=== PATIENT | female | born 1945 | race Two or more races ===

== ENCOUNTER 2020-11-06 21:04 | Emergency (ER) | payer MEDICARE, MEDICAID ==
[~2020-11-06] VITALS: Ht 172.7 cm; Wt 113.0 kg
[~2020-11-06 21:04] MED LIST: ATEN-42 PO; CLAR10 PO; CYCL30DR EACHEYE; ESOM40CA PO; EYE15DRO EACHEYE; FERR-43 PO; FURO-151 PO; IBUP-2030 PO; MULT-1146 PO; NIFE30TA8 PO; OXYC-582 PO; POTA10CA42 PO
[2020-11-06] MEDS ORDERED: FAMOTIDINE 20MG/2ML VIAL IV ONE (23:30)
[2020-11-06] MEDS ORDERED: MORPHINE SULFATE 4 MG/ML CPJ (NOT FOR IM USE) IV STA (23:48)
[2020-11-07 00:15] LABS: CHLORIDE 106 mEq/L (98-107)
[2020-11-07 00:26] LABS: BASOPHILS % 0.7 % (0.0-2.0); EOSINOPHILS % 6.8 % (0.0-5.0); HEMOGLOBIN. 14.7 g/dL (12.0-16.0); LYMPHOCYTES % 31.7 % (20.0-50.0); MEAN CORPUSCULAR VOLUME 85.7 fL (81.0-99.0); MEAN PLATELET VOLUME 8.1 fl (7.4-10.4); MONOCYTES % 7.1 % (2.0-8.0); NEUTROPHILS % 53.7 % (40.0-76.0); PLATELET 252 x1000/uL (130-400); RED BLOOD CELL COUNT 5.25 mill/uL (4.2-5.4); RED CELL DISTRIBUTION WIDTH 14.4 % (11.6-14.6)
[2020-11-07 01:00] LABS: CLARITY URINE CLEAR (CLEAR); COLOR URINE YELLOW (YELLOW); KETONES URINE NEGATIVE (NEGATIVE); LEUKOCYTE ESTERASE URINE NEGATIVE (NEGATIVE); NITRITE URINE NEGATIVE (NEGATIVE); OCCULT BLOOD URINE NEGATIVE (NEGATIVE); PROTEIN URINE NEGATIVE (NEGATIVE); SPECIFIC GRAVITY URINE 1.013 (1.005-1.030); UROBILINOGEN URINE 0.2 E.U./dL (0.2-1.0)
[2020-11-07 01:03] LABS: PROTHROMBIN TIME 10.8 sec (9.6-11.0)
[2020-11-07] MEDS ORDERED: IOHEXOL-300 100 ML BOTTLE ONE (01:44)
[2020-11-07] MEDS ORDERED: ACETAMINOPHEN 500MG TABLET PO NR (02:15)
[2020-11-07] MEDS ORDERED: MORPHINE SULFATE 4 MG/ML CPJ (NOT FOR IM USE) IV STA (04:29)
[2020-11-07 04:58] VITALS: BP 166/84
[2020-11-07] MEDS ORDERED: GABA-532 MT (04:58)
== END 2020-11-07 05:05 | disposition home or self-care (01) ==
LOC: ER 21:04
DX: K44.9 Diaphragmatic hernia without obstruction or gangrene (principal); R10.9 Unspecified abdominal pain; N20.0 Calculus of kidney; Q89.1 Congenital malformations of adrenal gland; H26.9 Unspecified cataract; I10 Essential (primary) hypertension; Z88.3 Allergy status to other anti-infective agents; Z96.649 Presence of unspecified artificial hip joint; Z96.659 Presence of unspecified artificial knee joint; Z98.890 Other specified postprocedural states
CPT/HCPCS: 36415; 71045; 74177; 80053; 81003; 83690; 84484; 85025; 85610; 93005; 96374; 96375; 96376; 99285; J2270; J3490; Q9967

== ENCOUNTER → 2020-11-19 | Outpatient (CLI) | payer MEDICARE, MEDICAID ==
[~2020-11-19] MED LIST changes: +BARIUM SULFATE 176 GM SUSP.RECON ONE; +EZ-HD SUSPENSION(BARIUM SULFATE 340GM) PO ONE; +GABA-532 MT
== END | disposition home or self-care (01) ==
LOC: RAD 09:06
PROVIDERS: ATTEND Internal Medicine
DX: K44.9 Diaphragmatic hernia without obstruction or gangrene (principal); M47.816 Spondylosis without myelopathy or radiculopathy, lumbar region
CPT/HCPCS: 74246

== ENCOUNTER 2021-11-23 09:55 | Emergency (ER) | payer MEDICARE, MEDICAID ==
[~2021-11-23] VITALS: Ht 175.3 cm; Wt 106.0 kg
[~2021-11-23 09:55] MED LIST changes: -BARIUM SULFATE 176 GM SUSP.RECON ONE; -EZ-HD SUSPENSION(BARIUM SULFATE 340GM) PO ONE
[2021-11-23 10:35] VITALS: BP 219/119
[2021-11-23] MEDS ORDERED: CLONIDINE 0.2MG TABLET PO ONE (12:30)
[2021-11-23 15:17] LABS: BASOPHILS % 0.5 % (0.0-2.0); HEMOGLOBIN. 13.2 g/dL (12.0-16.0); MEAN CORPUSCULAR HEMOGLOBIN 27.8 pg (28.0-32.0); MEAN CORPUSCULAR VOLUME 86.5 fL (81.0-99.0); MEAN PLATELET VOLUME 8.5 fl (7.4-10.4); NEUTROPHILS % 62.5 % (40.0-76.0); PLATELET 203 x1000/uL (130-400); RED BLOOD CELL COUNT 4.74 mill/uL (4.2-5.4); RED CELL DISTRIBUTION WIDTH 14.6 % (11.6-14.6)
[2021-11-23 15:27] LABS: CHLORIDE 106 mEq/L (98-107)
[2021-11-23 15:43] LABS: ETHANOL BLOOD < 10 mg/dL
[2021-11-23] MEDS ORDERED: CLONIDINE 0.2MG TABLET PO NR (16:40)
== END 2021-11-23 18:38 | disposition left against medical advice (07) ==
LOC: ER 10:06
DX: M54.2 Cervicalgia (principal); I11.0 Hypertensive heart disease with heart failure; I50.9 Heart failure, unspecified; Z90.49 Acquired absence of other specified parts of digestive tract; Z79.899 Other long term (current) drug therapy
CPT/HCPCS: 36415; 71045; 71046; 80053; 80320; 83880; 84443; 84484; 85025; 93005; 99285; G0480

== ENCOUNTER → 2021-12-12 | Outpatient (CLI) | payer MEDICARE, MEDICAID | END | disposition home or self-care (01) | LOC: CT 14:44 | DX: M51.37 Other intervertebral disc degeneration, lumbosacral region (principal); M47.815 Spondylosis without myelopathy or radiculopathy, thoracolumbar region; M46.06 Spinal enthesopathy, lumbar region; G95.89 Other specified diseases of spinal cord | CPT/HCPCS: 72131 ==

== ENCOUNTER 2022-01-08 16:25 | Emergency (ER) | payer MEDICARE, MEDICAID ==
[~2022-01-08] VITALS: Ht 175.3 cm; Wt 118.0 kg
[2022-01-08 20:07] LABS: BASOPHILS % 0.7 % (0.0-2.0); EOSINOPHILS % 2.9 % (0.0-5.0); HEMATOCRIT. 46.5 % (36.0-48.0); HEMOGLOBIN. 14.9 g/dL (12.0-16.0); LYMPHOCYTES % 27.1 % (20.0-50.0); MEAN CORPUSCULAR HEMOGLOBIN 27.3 pg (28.0-32.0); MEAN CORPUSCULAR VOLUME 85.4 fL (81.0-99.0); MEAN PLATELET VOLUME 8.9 fl (7.4-10.4); MONOCYTES % 7.4 % (2.0-8.0); NEUTROPHILS % 61.9 % (40.0-76.0); PLATELET 286 x1000/uL (130-400); RED BLOOD CELL COUNT 5.45 mill/uL (4.2-5.4); RED CELL DISTRIBUTION WIDTH 15.2 % (11.6-14.6)
[2022-01-08 20:21] LABS: CHLORIDE 105 mEq/L (98-107)
[2022-01-08] MEDS: MORPHINE SULFATE 4 MG/ML CPJ (NOT FOR IM USE) IV STA (20:33)
[2022-01-08] MEDS: ONDANSETRON HCL 4MG/2ML INJ IV STA (20:34)
[2022-01-08 20:57] LABS: CLARITY URINE CLEAR (CLEAR); COLOR URINE YELLOW (YELLOW); KETONES URINE NEGATIVE (NEGATIVE); LEUKOCYTE ESTERASE URINE NEGATIVE (NEGATIVE); NITRITE URINE NEGATIVE (NEGATIVE); OCCULT BLOOD URINE NEGATIVE (NEGATIVE); PROTEIN URINE NEGATIVE (NEGATIVE); SPECIFIC GRAVITY URINE 1.017 (1.005-1.030); UROBILINOGEN URINE 0.2 E.U./dL (0.2-1.0)
[2022-01-08] MEDS ORDERED: HYDR-4001 MT (22:13)
[2022-01-08 23:40] VITALS: BP 159/94
[2022-01-08] MEDS: MORPHINE SULFATE 4 MG/ML CPJ (NOT FOR IM USE) IV ONE (23:40)
== END 2022-01-09 00:15 | disposition home or self-care (01) ==
LOC: ER 16:25
DX: G89.29 Other chronic pain (principal); M54.50 Low back pain, unspecified; I11.0 Hypertensive heart disease with heart failure; I50.9 Heart failure, unspecified; E11.9 Type 2 diabetes mellitus without complications; Z79.899 Other long term (current) drug therapy
CPT/HCPCS: 36415; 71045; 80053; 81003; 82962; 85025; 96374; 96375; 96376; 99284; J2270; J2405

== ENCOUNTER → 2022-08-07 | Outpatient (CLI) | payer MEDICARE, MEDICAID ==
[~2022-08-07] MED LIST changes: +HYDR-4001 MT; -POTA10CA42 PO; +POTA10CA43 PO
[2022-08-07 11:34] LABS: BASOPHILS % 0.5 % (0.0-2.0); EOSINOPHILS % 4.7 % (0.0-5.0); LYMPHOCYTES % 19.1 % (20.0-50.0); MEAN CORPUSCULAR VOLUME 86.4 fL (81.0-99.0); MEAN PLATELET VOLUME 8.2 fl (7.4-10.4); NEUTROPHILS % 69.7 % (40.0-76.0); PLATELET 210 x1000/uL (130-400); RED BLOOD CELL COUNT 4.63 mill/uL (4.2-5.4); RED CELL DISTRIBUTION WIDTH 14.4 % (11.6-14.6)
[2022-08-07 11:44] LABS: CHLORIDE 104 mEq/L (98-107)
[2022-08-07 11:46] LABS: PARTIAL THROMBOPLASTIN TIME 28.3 sec (23.4-31.0); PROTHROMBIN TIME 10.4 sec (9.6-11.0)
[2022-08-07 12:00] LABS: T4 FREE 0.95 ng/dL (0.76-1.46)
== END | disposition home or self-care (01) ==
LOC: LAB 11:03
DX: I10 Essential (primary) hypertension (principal); E78.00 Pure hypercholesterolemia, unspecified
CPT/HCPCS: 36415; 80053; 83036; 83880; 84439; 84443; 84481; 85025; 86200; 86431

== ENCOUNTER → 2022-08-11 | Outpatient (CLI) | payer MEDICARE, MEDICAID ==
[~2022-08-11] MED LIST changes: +IOHEXOL-300 100 ML BOTTLE ONE
== END | disposition home or self-care (01) ==
LOC: CT 09:42
DX: R22.1 Localized swelling, mass and lump, neck (principal); M47.812 Spondylosis without myelopathy or radiculopathy, cervical region; M47.814 Spondylosis without myelopathy or radiculopathy, thoracic region
CPT/HCPCS: 70491; 71260; Q9967